=== PATIENT | male | born 1980 | race African-American/Black ===

== ENCOUNTER 2020-05-04 09:28 | Emergency (ER) | payer MEDICAID ==
[~2020-05-04] VITALS: Ht 185.4 cm; Wt 82.0 kg
[2020-05-04] MEDS ORDERED: ACETAMINOPHEN WITH CODEINE 300/30MG TABLET PO ONE (11:00)
[2020-05-04 11:04] VITALS: BP 136/91
== END 2020-05-04 11:15 | disposition home or self-care (01) ==
LOC: ER 09:28
DX: K08.89 Other specified disorders of teeth and supporting structures (principal); K02.9 Dental caries, unspecified
CPT/HCPCS: 99283

== ENCOUNTER 2020-12-05 17:39 | Emergency (ER) | payer MEDICAID ==
[~2020-12-05] VITALS: Ht 185.4 cm; Wt 90.0 kg
[2020-12-05 17:52] VITALS: BP 122/78
== END 2020-12-05 22:25 | disposition left against medical advice (07) ==
LOC: ER 17:39
DX: Z53.21 Procedure and treatment not carried out due to patient leaving prior to being seen by health care provider (principal)